=== PATIENT | female | born 2000 | race Two or more races ===

== ENCOUNTER → 2024-10-28 | Outpatient (CLI) | payer BC, SELFPAY ==
[2024-10-28 08:58] LABS: Collection Type, Urine Clean Catch
--- NOTE | 2024-10-28 09:24 | XR_ITS ---
Examination: PA lateral chest 2 views TECHNIQUE: Upright PA lateral chest 2 views Exam date and time: October 28, 2024 0948 hours INDICATIONS: Intermittent chest pain beginning 6 months ago FINDINGS: Normal heart size. Lungs are clear. The osseous structures are intact IMPRESSION: No active disease
[2024-10-28 09:52] LABS: Basophils % (Auto) 0 % (0-2.5); Eosinophils # (Auto) 0.1 Thou/mm3 (0.0-0.5); Eosinophils % (Auto) 1 % (0-10); Hematocrit 38.9 % (36.0-46.0); Hemoglobin 13.4 g/dL (12.0-16.0); Immature Granulocytes % (Auto) 0 % (0-0); Immature Granulocytes Auto 0.02 Thou/mm3 (0.00-0.00); Lymphocytes # (Auto) 2.8 Thou/mm3 (1.0-4.8); Lymphocytes % (Auto) 40 % (10-50); Mean Corpuscular HGB Conc 34.4 g/dl (31.0-37.0); Mean Corpuscular Hemoglobin 29.8 pg (25.0-35.0); Mean Corpuscular Volume 87 fL (80-100); Monocytes # (Auto) 0.4 Thou/mm3 (0.0-0.8); Monocytes % (Auto) 6 % (0-12); Neutrophils # (Auto) 3.7 Thou/mm3 (1.8-7.7); Neutrophils % (Auto) 53 % (37-80); Nucleated Red Blood Cell % 0 /100 WBC (0); Platelet Count 213 Thou/mm3 (140-440); RDW Standard Deviation 38.5 fL (36.4-46.3); Red Blood Count 4.49 Miln/mm3 (4.00-5.20); White Blood Count 7.1 Thou/mm3 (3.6-11.0)
[2024-10-28 10:04] LABS: Alanine Aminotransferase 16 U/L (10-49); Albumin, Serum 4.9 gm/dL (3.5-5.0); Albumin/Globulin Ratio 1.5 (1.2-2.2); Alkaline Phosphatase 76 U/L (46-116); Anion Gap 7 (7-16); Aspartate Amino Transferase 17 U/L (0-34); BUN/Creatinine Ratio 16 Ratio (12-20); Bilirubin,Total 0.7 mg/dL (0.3-1.2); Blood Urea Nitrogen 13 mg/dL (9-23); Calcium 9.7 mg/dL (8.3-10.6); Calcium (Corrected) 9.7 mg/dL (8.5-10.1); Carbon Dioxide 26.7 mMol/L (20.0-31.0); Chloride 104 mMol/L (98-107); Cholesterol 160 mg/dL (132-200); Creatinine (Component) 0.8 mg/dL (0.6-1.3); Globulin 3.2 gm/dL (2.3-3.5); Glucose 86 mg/dL (74-106); HDL Cholesterol 40 mg/dL (40-60); LDL Cholesterol,Calculated 107 mg/dL (0-130); Osmolality,Calculated 274 (275-295); Potassium 3.5 mMol/L (3.4-5.1); Sodium 138 mMol/L (136-145); Thyroid Stimulating Hormone 1.97 uIU/mL (0.55-4.78); Total Protein 8.1 gm/dL (5.7-8.2); Triglycerides 65 mg/dL (30-150); eGFR > 60 See Note
[2024-10-28 10:13] LABS: Bacteria,Urine Rare; Bilirubin,Urine Negative (Negative); Blood,Urine Negative (Negative); Clarity,Urine Clear (Clear/Hazy); Color,Urine Yellow (Lt Yel-Yel); Culture Indicated,Urine Not Indicated; Glucose, Urine Negative (Negative); Ketones,Urine Negative (Negative); Leukocyte Esterase,Urine Negative (Negative); Nitrite,Urine Negative (Negative); PH,Urine 5.5 (5.0-7.0); Protein,Urine Trace (Neg - Trace); RBC,Urine 2 /hpf (0-3); Specific Gravity,Urine 1.034 (1.001-1.035); Squamous Epithelial Cell,Urine 4 /hpf (0-5); Urobilinogen,Urine Negative mg/dL (0.0-1.0); WBC,Urine 1 /hpf (0-5)
== END | disposition home or self-care (01) ==
PROVIDERS: PCP Nurse Practitioner Family; Referring Provider Nurse Practitioner Family; Visit Provider Nurse Practitioner Family
DX: R07.9 Chest pain, unspecified (principal)
CPT/HCPCS: 36415; 71046; 80053; 80061; 81001; 84443; 85025

== ENCOUNTER 2024-11-10 21:20 | Emergency (ER) | payer BC, SELFPAY ==
[2024-11-10 21:21] VITALS: BMI 24.3
[2024-11-10 21:30] VITALS: BP 149/98; PULSE 88; RESP 18; TEMP 36.6; O2SAT 99
--- NOTE | 2024-11-10 21:45 | EKG_ITS ---
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
--- NOTE | 2024-11-10 21:47 | PD.EDRME ---
Rapid Medical Screening Exam E Arrival date/time: 11/10/24 21:20 This is a 24-year-old female that comes in with complaints of chest pain to the left side of her chest. Patient states pain started unprovoked prior to arrival. Patient is being worked up with primary provider for this problem. Per patient she is waiting for her cardiology referral. Patient has been worked up by her primary doctor and per patient all the labs come back normal. Patient denies any past medical history. I have greeted and performed a focused initial assessment of this patient. Initial appropriate labs ordered at this time. A comprehensive ED assessment and evaluation of the patient and analysis of all test and completion of medical decision making process will be conducted by additional ED provider. Chief Complaint: Chest Pain Time Seen by Provider: 11/10/24 21:30 Vital signs: Vital Signs Temperature 97.8 F 11/10/24 21:30 Pulse Rate 88 11/10/24 21:30 Respiratory Rate 18 11/10/24 21:30 Blood Pressure 149/98 H 11/10/24 21:30 Pulse Oximetry (%) 99 11/10/24 21:30 Oxygen Delivery Method Room Air 11/10/24 21:30
[2024-11-10] MEDS: LIDOCAINE VISCOUS 2% 15 ML UDC PO (21:52)
[2024-11-10] MEDS: MG HYD/AL HYD/SIME (Maalox Reg) SUSP 30 ML UDC PO (21:52)
--- NOTE | 2024-11-10 22:08 | EDNOTE_ITS ---
ED General RME/HPI General Chief complaint: Chest Pain Stated complaint: chest pain x 10 min ago, burning feeling Time Seen by Provider: 11/10/24 21:30 Arrival date/time: 11/10/24 21:20 CC: Chest pain HPI onset at 2030 this evening, so approximately an hour and a half ago burning sensation in the left anterior chest. Worse with deep inhalation reproducible with palpation. The patient states she has had intermittent chest pain since April has been seen by her PCP several times for and has now had a outpatient referral to cardiology for the end of this month. Patient denies any shortness of breath or difficulty breathing. No other complaints RME / HPI RME / HPI narrative: 11/10/24 21:20 This is a 24-year-old female that comes in with complaints of chest pain to the left side of her chest. Patient states pain started unprovoked prior to arrival. Patient is being worked up with primary provider for this problem. Per patient she is waiting for her cardiology referral. Patient has been worked up by her primary doctor and per patient all the labs come back normal. Patient denies any past medical history. I have greeted and performed a focused initial assessment of this patient. Initial appropriate labs ordered at this time. A comprehensive ED assessment and evaluation of the patient and analysis of all test and completion of medical decision making process will be conducted by additional ED provider. Related Data Allergies Allergy/AdvReac Type Severity Reaction Status Date / Time NKA Allergy Unknown Uncoded 12/15/16 18:40 Review of Systems Review of Systems Narrative Review of Systems: GEN: No fever, no chills, no weight loss EYES: No discharge, no visual changes, no pain HEENT: No ear pain, no congestion, no sore throat PULM: No shortness of breath, no cough, no congestion CV: + chest pain, no dyspnea on exertion, no palpitations GI: No nausea, no vomiting, no diarrhea, no pain, no constipation : No frequency, no urgency, no dysuria MUSC/SKEL: No joint pain, no back pain SKIN: No rash PSYCH: No hallucinations, no depression HEME/LYMPH: No easy bleeding or bruising tendencies NEURO: No weakness, no headache Past Medical History Social History SMOKING STATUS: Never smoker ED Exam Narrative Physical exam: [General: Not in any acute distress Head normocephalic HEENT: Within acceptable limits Neck is supple nontender Chest equal chest rise generalized tenderness to the left costosternal junction area, no right-sided pain. Respiratory: Clear to auscultation no wheezes crackles or rubs CV: Rate rhythm is regular no murmurs rubs or clicks Abdomen is distended secondary to body habitus soft nontender no masses positive bowel sounds all 4 quadrants Back: No CVA tenderness no spinous process tenderness from cervical spine thoracic and lumbar spine Skin: Intact no petechiae rash induration ulceration or crepitus Extremities: Moving all extremities against resistance cap refill less than 2 seconds neurosensory intact Neuro: Awake alert oriented x3 Glascow coma 15 no focal deficits] Course Quality Measures none Orders Category Date Time Status EKG (ED ONLY) *Do not use* NOW Care 11/10/24 21:45 Completed EKG (ED Only) Stat Exams 11/10/24 21:45 Draft XR chest 2V Stat Exams 11/10/24 21:45 Stop Req Lidocaine 2% Viscous [Xylocaine 2% Viscous] Med 11/10/24 21:46 Discontinued 15 ml PO X1 ONE mg Hyd/Al Hyd/Kiarra Susp [Maalox Susp] Med 11/10/24 21:46 Discontinued 30 ml PO X1 ONE Vital Signs Vital signs: Vital Signs Temperature 97.8 F 11/10/24 21:30 Pulse Rate 88 11/10/24 21:30 Respiratory Rate 18 11/10/24 21:30 Blood Pressure 149/98 H 11/10/24 21:30 Pulse Oximetry (%) 99 11/10/24 21:30 Oxygen Delivery Method Room Air 11/10/24 21:30 [facility] Patient data External records reviewed:: [facility] previous records Clinical information provided by:: patient Social determinants that could affect healthcare access:: none Patient has the following chronic illnesses:: None How is presenting disease/condition affected by chronic disease/condition?: uneffected by Evaluation data The following diagnostics were reviewed and interpreted by me:: EKG tracing(s) Lab and/or radiology exams considered but not ordered:: EKG performed at 2131 shows a ventricular rate of 6 6 MT interval 167 QRS of 113 QTc of 423 sinus rhythm baseline wander baseline artifact poor quality EKG Interpretation Summary: Chest pain most likely pleuritic or musculoskeletal in nature as it is reproducible. Patient states she already has a follow-up with cardiology for recurrent episodes of chest pain at 24 years of age Medications Medications considered but not ordered:: None Medication administrations:: Medication Administration History Discontinued Medications Al Hydrox/Mg Hydrox/Simethicone (Mg Hyd/Al Hyd/Kiarra (Maalox Reg) Susp 30 Ml Udc) 30 ml PO X1 ONE Stop: 11/10/24 21:47 Last Admin: 11/10/24 21:52 Dose: 30 ml Documented By: Lidocaine HCl (Lidocaine Viscous 2% 15 Ml Udc) 15 ml PO X1 ONE Stop: 11/10/24 21:47 Last Admin: 11/10/24 21:52 Dose: 15 ml Documented By: None Consultations Consultation(s) initiated? (list below): No Diagnosis Differential Diagnosis ED Complaint MDM: Pneumonia URI intercostal strain pleuritic chest pain Most likely diagnosis given after review of the tests above:: Chest wall pain Admission Indicated Admission indicated?: not indicated Explain why admission is indicated or not indicated:: Stable for discharge Admission Request Was there a request for admission?: No Disposition Plan Disposition Plan: Discharge Discharge Attestation Discharge Attestation: The patient and all family members were given an opportunity to ask questions and understood the discharge instructions. Discharge instructions specifically effects, indications for sooner follow up or return to the emergency department, and the expected course of current diagnosis. Patient condition: Stable Medical Decision Making Differential Diagnosis Differential Diagnosis: Pneumonia URI intercostal strain pleuritic chest pain Discharge Plan Plan Patient Disposition: HOME (Self Care) Patient condition on transfer: Stable Problem List Clinical Impression: Chest pain in adult Patient/Caregiver Discharge Instructions Other Activity Instructions:: Follow-up with outpatient cardiology referral as stated at the end of the month. Education Materials: ED Chest Pain, Noncardiac Print Language: Cuban Stand Alone Forms: Viri Award Info., Patient Portal Info Letter, Work/School Release PA/MINNA Supervising Physician PA/MINNA Supervising Physician: Naun Kamara ENP
--- NOTE | 2024-11-10 22:08 | XR_ITS ---
Examination: PA lateral chest 2 views TECHNIQUE: Upright PA lateral chest 2 views Exam date and time: November 10, 2024 0957 hours Comparison October 28, 2024 INDICATIONS: Chest pain today FINDINGS: Normal heart size. Lungs are clear. The osseous structures are intact IMPRESSION: No active disease
== END 2024-11-10 22:20 | disposition home or self-care (01) ==
LOC: SERX 22:25
PROVIDERS: Emergency Provider Emergency Medicine; Referring Provider Emergency Medicine
DX: R07.89 Other chest pain (principal)
CPT/HCPCS: 71046; 80053; 83880; 84484; 84703; 85025; 93005; 99283; J3490; A9270

== ENCOUNTER 2024-11-12 12:04 | Emergency (ER) | payer BC, SELFPAY ==
[2024-11-12 12:04] VITALS: BMI 24.7
--- NOTE | 2024-11-12 12:09 | EKG_ITS ---
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
--- NOTE | 2024-11-12 12:35 | XR_ITS ---
Examination: PA lateral chest 2 views TECHNIQUE: Upright PA lateral chest 2 views Exam date and time: November 12, 2024 1300 hours Comparison November 10, 2024 INDICATIONS: Chest pain beginning 3 days ago. FINDINGS: Normal heart size. Lungs are clear. The osseous structures are intact IMPRESSION: No active disease
[2024-11-12 12:42] VITALS: BP 132/84; PULSE 74; RESP 16; TEMP 36.7; O2SAT 100; BMI 25.8
[2024-11-12 13:13] LABS: Basophils % (Auto) 1 % (0-2.5); Eosinophils # (Auto) 0.1 Thou/mm3 (0.0-0.5); Eosinophils % (Auto) 1 % (0-10); Hematocrit 38.6 % (36.0-46.0); Hemoglobin 13.4 g/dL (12.0-16.0); Immature Granulocytes % (Auto) 0 % (0-0); Immature Granulocytes Auto 0.03 Thou/mm3 (0.00-0.00); Lymphocytes % (Auto) 38 % (10-50); Mean Corpuscular HGB Conc 34.7 g/dl (31.0-37.0); Mean Corpuscular Volume 87 fL (80-100); Monocytes # (Auto) 0.4 Thou/mm3 (0.0-0.8); Monocytes % (Auto) 5 % (0-12); Neutrophils # (Auto) 4.4 Thou/mm3 (1.8-7.7); Neutrophils % (Auto) 55 % (37-80); Nucleated Red Blood Cell % 0 /100 WBC (0); Platelet Count 230 Thou/mm3 (140-440); RDW Standard Deviation 39.2 fL (36.4-46.3); Red Blood Count 4.46 Miln/mm3 (4.00-5.20)
[2024-11-12 13:28] LABS: HCG,Qualitative Serum Negative
[2024-11-12 13:34] LABS: Alanine Aminotransferase 14 U/L (10-49); Albumin, Serum 4.8 gm/dL (3.5-5.0); Albumin/Globulin Ratio 1.5 (1.2-2.2); Alkaline Phosphatase 77 U/L (46-116); Anion Gap 10 (7-16); Aspartate Amino Transferase 15 U/L (0-34); BUN/Creatinine Ratio 14 Ratio (12-20); Bilirubin,Total 0.5 mg/dL (0.3-1.2); Blood Urea Nitrogen 11 mg/dL (9-23); Calcium 9.8 mg/dL (8.3-10.6); Calcium (Corrected) 9.8 mg/dL (8.5-10.1); Carbon Dioxide 25.1 mMol/L (20.0-31.0); Chloride 105 mMol/L (98-107); Creatinine (Component) 0.8 mg/dL (0.6-1.3); Globulin 3.2 gm/dL (2.3-3.5); Glucose 91 mg/dL (74-106); Osmolality,Calculated 278 (275-295); Potassium 4.1 mMol/L (3.4-5.1); Sodium 140 mMol/L (136-145); Troponin I < 0.002 ng/mL (0.0-0.045); eGFR > 60 See Note
--- NOTE | 2024-11-12 15:10 | EDNOTE_ITS ---
<Statement entered by Mariella Castro MD - 11/16/24 09:18> As co-signing physician, I was present and available for consult prn. I concur with the plan and care as documented by the midlevel provider. ED Chest Pain RME/HPI General Chief Complaint: Chest Pain Stated Complaint: CHEST PAIN ON LEFT WITH BURNING Time Seen by Provider: 11/12/24 15:10 Arrival date/time: 11/12/24 12:04 24-year-old female presents to the emergency department today complaints of chest pain patient reports symptoms ongoing since April patient reports that she has a follow-up appointment with cardiology and patient reports that she is already been seen in another ER as well Limitations: no limitations Related Data Allergies Allergy/AdvReac Type Severity Reaction Status Date / Time No Known Allergies Allergy Verified 11/12/24 12:08 Review of Systems Review of Systems Systems Reviewed: All systems reviewed, normal except as documented Constitutional Constitutional: Reports system reviewed and no additional complaints, except as documented, Denies fever(s) and Denies headache(s) Eyes Eyes: Reports system reviewed and no additional complaints, except as documented and Denies blurry vision ENT Ears, Nose, Mouth, and Throat: Reports system reviewed and no additional complaints, except as documented, Denies headache(s), Denies nasal congestion and Denies nasal discharge Cardiovascular Cardiovascular: Reports system reviewed and no additional complaints, except as documented, Denies chest pain and Denies dyspnea Respiratory Respiratory: Reports system reviewed and no additional complaints, except as documented, Denies chest congestion, Denies cough and Denies dyspnea Gastrointestinal Gastrointestinal: Reports system reviewed and no additional complaints, except as documented, Reports abdominal pain, Denies nausea and Denies vomiting Integumentary/Breasts Skin/Breast: Reports system reviewed and no additional complaints, except as documented and Denies rash Neurologic Neurologic: Reports system reviewed and no additional complaints, except as documented, Reports as per HPI and Denies headache(s) Past Medical History Past Medical History NEUROLOGIC: Negative Neurological Disorders CARDIAC: Negative Cardiac Disorders Social History SMOKING STATUS: Never smoker ED Exam General Limitations: Present no limitations General appearance: Present alert and in no apparent distress Head Head exam: Present atraumatic, normocephalic and normal inspection Eye Eye exam: Present normal appearance, PERRL and EOMI ENT ENT exam: Present normal exam, normal oropharynx and mucous membranes moist Neck Neck exam: Present normal inspection, full ROM and trachea midline Chest Chest inspection: Present normal inspection and symmetric chest wall rise Respiratory Respiratory exam: Present normal lung sounds bilaterally; Absent respiratory distress Cardiovascular Cardiovascular exam: Present regular rate, normal rhythm and normal heart sounds; Absent bradycardia, tachycardia, irregular rhythm, systolic murmur, diastolic murmur or JVD Abdominal Exam Abdominal exam: Present soft and normal bowel sounds; Absent distention, tenderness, guarding, rebound or rigidity Extremities Exam Extremities exam: Present normal inspection and full ROM Back Exam Back exam: Present normal inspection and full ROM Neurological Exam Neurological exam: Present alert, oriented X3 and CN II-XII intact Psychiatric Psychiatric exam: Present normal affect and normal mood Skin Skin exam: Present warm, dry, intact and normal color Course Quality Measures none Orders Category Date Time Status EKG (ED ONLY) *Do not use* NOW Care 11/12/24 12:09 Completed EKG (ED Only) Stat Exams 11/12/24 12:09 Draft XR chest 2V Stat Exams 11/12/24 12:35 Completed CBC Stat Lab 11/12/24 12:51 Completed Comprehensive Metabolic Panel Stat Lab 11/12/24 12:51 Completed HCG,Qualitative Serum Stat Lab 11/12/24 12:51 Completed Troponin I Stat Lab 11/12/24 12:51 Completed Ibuprofen Tab [Motrin Tab] Med 11/12/24 15:08 Discontinued 600 mg PO X1 ONE Ketorolac Inj [Toradol Inj] Med 11/12/24 15:10 Discontinued 30 mg IM X1 ONE Vital Signs Vital signs: Vital Signs Temperature 98.1 F 11/12/24 12:42 Pulse Rate 74 11/12/24 12:42 Respiratory Rate 16 11/12/24 12:42 Blood Pressure 132/84 H 11/12/24 12:42 Pulse Oximetry (%) 100 11/12/24 12:42 Oxygen Delivery Method Room Air 11/12/24 12:42 O2 saturation 100% r/a wnl Procedures -ED EKG Interpretation #1: Date of EK11/12/24 Time of EK:41 Rate: 70 Interpretation: Interpreted by me EKG Impression: Normal sinus rhythm, No acute ST-T changes, No ectopy, No ischemic changes, Normal QRS, Normal intervals and Normal axis Chest Pain MDM Narrative MDM Narrative:: 24-year-old female presents to the emergency department today complaints of chest pain patient reports symptoms ongoing since April patient reports that she has a follow-up appointment with cardiology and patient reports that she is already been seen in another ER as well On exam patient well-appearing patient does not appear ill or toxic On exam patient does appear to be anxious about her symptoms Lab work chest x-ray EKG obtained there are no acute emergent findings noted EKG sinus rhythm troponin is normal Patient discharged home in no distress to follow-up with primary care doctor in the next 24 to 48 hours and for any worsening symptoms to return to the ER immediately Patient data External records reviewed:: [facility] previous records Clinical information provided by:: patient Social determinants that could affect healthcare access:: none Patient has the following chronic illnesses:: None How is presenting disease/condition affected by chronic disease/condition?: no chronic disease Evaluation data The following diagnostics were reviewed and interpreted by me:: lab results, radiology exam(s) and EKG tracing(s) Lab and/or radiology exams considered but not ordered:: Labs, radiology, EKG obtained Interpretation Summary: Reviewed by me Medications / Prescriptions Medications or Prescriptions considered but not ordered:: Given Medication administrations:: Medication Administration History Discontinued Medications Ibuprofen (Ibuprofen Tab 600 Mg Tablet) 600 mg PO X1 ONE Stop: 11/12/24 15:09 Ketorolac Tromethamine (Ketorolac Inj 30 Mg/Ml Vial) 30 mg IM X1 ONE Stop: 11/12/24 15:11 Last Admin: 11/12/24 15:18 Dose: 30 mg Documented By: FADI Given Consultations Consultation(s) initiated? (list below): No Diagnosis Chest Pain Differential Diagnosis: stable angina, atypical chest pain, st elevation myocardial infarction and costochondritis Most likely diagnosis given after review of the tests above:: Chest pain Admission Indicated Admission indicated?: not indicated Admission Request Was there a request for admission?: No Disposition Plan Disposition Plan: Discharge Discharge Attestation Discharge Attestation: The patient and all family members were given an opportunity to ask questions and understood the discharge instructions. Discharge instructions specifically effects, indications for sooner follow up or return to the emergency department, and the expected course of current diagnosis. Patient condition: Stable Discharge Plan Plan Patient Disposition: HOME (Self Care) Disposition Comment: Stable Prescriptions/Referrals Referrals: Tonya Estevez NP [Primary Care Provider] - 11/13/24 Problem List Clinical Impression: Chest pain, non-cardiac Patient/Caregiver Discharge Instructions Education Materials: Medicine for Pain Additional Instructions: Please follow up with your primary care doctor in the next 24-48hrs for any worsening symptoms return here immediately Print Language: Finnish Stand Alone Forms: Viri Award Info., Work/School Release, Patient Portal Info Letter PA/SITE INSPECTOR Supervising Physician PA/SITE INSPECTOR Supervising Physician: Dr. castro
[2024-11-12] MEDS: KETOROLAC INJ 30 MG/ML VIAL IM (15:18)
[2024-11-12 15:33] VITALS: BP 124/62; PULSE 70; RESP 19; O2SAT 100
== END 2024-11-12 15:35 | disposition home or self-care (01) ==
PROVIDERS: Nurse Practitioner Primary Care; Emergency Provider Emergency Medicine; PCP Nurse Practitioner Family
DX: R07.89 Other chest pain (principal)
CPT/HCPCS: 36415; 71046; 80053; 84484; 84703; 85025; 93005; 96372; 99283; J1885